=== PATIENT | male | born 1995 | race Caucasian/White ===

== ENCOUNTER 2022-10-14 23:19 | Emergency (ER) | payer OTHER, SELFPAY ==
--- NOTE | ~2022-10-14 | CT_ITS ---
EXAMINATION: CT HEAD WITHOUT CONTRAST CLINICAL INFORMATION: Altered mental status. COMPARISON: None available. TECHNIQUE: Contiguous axial imaging was performed from the skull base to vertex without intravenous administration of contrast. This CT examination was performed using dose optimization techniques as appropriate, variously including the following: *Automated exposure control. *Adjustment of mA and/or kV according to patient size (this includes techniques or standardized protocols for targeted exams where dose is matched to indication/reason for exam; i.e. extremities or head). *Use of iterative reconstruction technique. DLP: 672 mGy-cm FINDINGS: There is no evidence of acute intracranial hemorrhage or edematous territorial infarction. Davis-white matter differentiation is preserved. There is no abnormal attenuation within the brain parenchyma. The ventricles are normal in morphology and size. No evidence for obstructive hydrocephalus. No abnormal mass effect or midline shift. No extra-axial fluid collections. No acute soft tissue or osseous abnormalities. The mastoid air cells and visualized paranasal sinuses are clear. CT/CT head/brain wo IV con IMPRESSION: No evidence of acute intracranial hemorrhage or edematous territorial infarction.
--- NOTE | 2022-10-14 23:49 | ED.PSYCH ---
HPI - Psych General Stated Complaint: Crisis Time Seen by Provider: 10/14/22 23:47 Source: patient, family (Sister), EMS and police Mode of arrival: EMS Limitations: physical limitation (Acute psychosis) History of Present Illness HPI Narrative: 27 year male history of bipolar came in for evaluation of possible acute psychosis. Patient came in with the police not under Section 12, patient in the emergency department agitated, invective and abusive language to the staff patient stated that he has suicidal ideation but refused to mention any plan to it, patient also is refusing to answer if she used recreational drugs last night, history was mostly obtained from his sister who was called by the patient to come and pick him up from his house patient was acting psychotic and the sister drove him to the police station where they bring him to our hospital. Patient had prior mental hospitalization for suicidal ideation. Related Data Allergies Allergy/AdvReac Type Severity Reaction Status Date / Time No Known Allergies Allergy Unverified 02/04/20 16:34 Review of Systems Review of Systems: Yes Unobtainable due to mental condition (Acute psychosis.) Physical Exam Vital Signs: Vital Signs: Vital signs have been reviewed as appeared to be correct. Blood pressure normal. Heart rate normal. Respiration rate normal. Temperature normal. Oxygen saturation normal. Appearance: Alert. Oriented X3. No acute distress. Head: Normal external exam. Normocephalic. Atraumatic. No Mcdaniels signs noted. No raccoon eyes noted Eyes: PERRLA. EOMI. Conjunctiva and sclera normal. Eyelids normal. ENT: TM's Normal. Pharynx normal. Uvula midline. Moist mucous membranes. No trismus noted. No drooling noted. No muffled voice noted. Neck: Normal inspection. Neck supple. FROM. No adenopathy. Thyroid Normal. No meningeal signs. No neck mass noted. CVS: Normal heart rate and rhythm. Heart sound normal. No murmurs noted. Pulses normal throughout. Respiratory: No respiratory distress. Painless inspiration. Breath sounds normal. No wheezes/rales/rhonchi noted. Chest nontender. No accessory muscle usage noted or decreased air movement noted. Abdomen: Soft and nontender. Bowel sounds normal in all 4 quadrants. No distention noted. No organomegaly noted. No visible injury noted. Back: No CVA tenderness. Full range of motion noted. Skin: Skin warm and dry. Normal skin color. Normal skin turgor. No rashes/lesions/lacerations noted. Extremities: No lower extremity edema. Extremities exhibit normal range of motion. Extremities nontender. Neuro: Oriented X 3. Cranial nerve exam: II-XII are grossly intact No motor deficit. No sensory deficit. Reflexes normal. Patient Orientation: Person, Place, Time and Situation, okay hygiene and grooming. Fair eye contact, attentive, no tics or tremors. Level of Consciousness: Awake, Appropriate and Alert Patient Behavior: Appropriate, Guarded, Cooperative and Anxious Mood Description: Constricted, Blunted and Apprehensive Affect Description: Constricted, Blunted and Apprehensive Patient Cognition Impaired: No Ability to Follow Directions: Excellent Speech Pattern: Clear, Appropriate and Spontaneous Speech, nonpressured, spontaneous with regular rate and rhythm, normal volume and prosody. No dysarthria. Memory Description: Intact, Immediate Intact and Short Term Intact Hallucinations: None Delusions: Not Present Thought Process: Intact Thought Content: positive for Intact, positive for Logical, Suicidal Ideation, denies Homicidal Ideation. Depressive Symptoms: Not present. Judgement and Insight: Limited but adequate. Course Course Course Narrative: 27-year-old male came in accompanied by the police appear to be in acute psychosis, will check patient for urine drugs screening, check labs, care team for further evaluation. Medical Decision Making Differential Diagnosis Differential Diagnoses: The differential diagnosis associated with the presentation includes (Acute psychosis, substance abuse, alcohol abuse, electrolytes abnormalities, severe anemia.) Discharge Plan Discharge Clinical Impression: Acute psychosis, Suicidal ideation Patient Disposition: Still a Patient
[2022-10-14] MEDS: LORazepam 1 MG TABLET 2 MG PO (23:50)
[2022-10-14] MEDS: HaloperidoL 5 MG TABLET PO (23:50)
[2022-10-14] MEDS: diphenhydrAMINE HCL 25 MG CAPSULE PO (23:50)
[2022-10-15 01:01] VITALS: BP 172/95; PULSE 102; RESP 16; O2SAT 100; BMI 27.3
--- NOTE | 2022-10-15 01:04 | PC.NURSE ---
pt assessed, pt voluntary came in for +SI. Pt recently discharged from the . C/o of manic episodes x 1 week and unable to sleep. Pt uncooperative with staff . Family in talking with pt, pt willing to take po medications at 2350. Pt unwilling in go into a room or be touched by staff, lab work not done
--- NOTE | 2022-10-15 01:40 | PC.NURSE ---
blood work obtained
[2022-10-15 01:43] LABS: Hematocrit 38.1 % (42.0-52.0); Hemoglobin 13.3 g/dl (14.0-18.0); Imm Gran Abs Auto 0.02 X10*3/uL (0.00-0.03); Imm Gran Pct Auto 0.3 % (0.0-0.4); Lymphocytes Absolute Auto 0.9 X10*3/uL (1.2-4.9); Lymphocytes Percent Auto 11.7 % (20-40); MANUAL DIFF FLAG NO; Mean Corpuscular HGB Conc 34.9 g/dl (31.0-36.0); Mean Corpuscular Hemoglobin 30.2 pg (27.0-33.0); Mean Corpuscular Volume 86.6 fL (80.0-98.0); Mean Platelet Volume 9.2 fL (9.4-12.4); Monocytes Absolute Auto 0.5 X10*3/uL (0.1-1.2); Monocytes Percent Auto 6.4 % (2-11); Neutrophils Absolute Auto 6.1 x10*3/uL (2.0-8.3); Neutrophils Percent Auto 81.6 % (45-73); Platelet Count 201 X10*3/uL (160-400); Red Cell Distribution Width 11.9 % (11.0-16.0); White Blood Count 7.5 X10*3/uL (4.8-10.8)
[2022-10-15 02:00] LABS: Ethanol < 10 mg/dL
[2022-10-15 02:02] LABS: Alanine Aminotransferase 16 U/L (0-40); Albumin Level 4.8 g/dL (3.5-5.0); Alkaline Phosphatase 54 U/L (39-117); Anion Gap 15 (12-20); Aspartate Amino Transferase 19 U/L (5-37); Bilirubin Direct 0.2 mg/dL (0.0-0.5); Bilirubin Total 0.7 mg/dL (0.0-1.0); Blood Urea Nitrogen 9 mg/dL (9-16); Calcium 9.7 mg/dL (8.4-10.2); Carbon Dioxide 24 mmol/L (22-29); Chloride 103 mmol/L (96-108); Creatinine Clr Calc Pharmacy 127.2; Estimated Glomerular Filt Rate > 60; Glucose Random 134 mg/dL (60-115); Lipase 15 U/L (8-78); Potassium 3.8 mmol/L (3.3-5.1); Sodium 138 mmol/L (135-145); Total Protein 7.7 g/dL (6.5-8.0)
--- NOTE | 2022-10-15 06:16 | PC.NURSE ---
pt declined VS at this time
--- NOTE | 2022-10-15 09:32 | PC.NURSE ---
Pt refused vitals.
--- NOTE | 2022-10-15 09:43 | PC.NURSE ---
Pt is refusing vitals, refusing to register when approached, Pt is anxious. MD notified.
[2022-10-15] MEDS: LORazepam 1 MG TABLET PO (09:54)
[2022-10-15 09:55] LABS: Appearance Urine Clear; Color Urine Yellow; Glucose Urine UA Negative (Negative); Leukocyte Esterase Urine Negative (Negative); Nitrite Urine Negative (Negative); Urine Blood Negative (Negative); Urine Ketones Negative (Negative); Urine Protein Negative (Neg-Trace)
[2022-10-15 10:01] LABS: Bacteria Urine None Seen (None Seen); Hyaline Casts Urine 0-2 /LPF (0-2); RBC Urine 0-2 /HPF (0-2); Squamous Epithelial Cell Urine 0-2 /HPF (0-2); WBC Urine 0-5 /HPF (0-5)
[2022-10-15 10:06] LABS: Amphetamine Screen Urine POSITIVE (Not Detect); Barbiturates, Urine Not Detected (Not Detect); Benzodiazepines Screen Urine Not Detected (Not Detect); Cannabinoid Screen Urine POSITIVE (Not Detect); Cocaine Screen Urine Not Detected (Not Detect); Fentanyl, urine Not Detected (Not Detect); Opiate Screen Urine Not Detected (Not Detect); Phencyclidine Screen Urine Not Detected (Not Detect)
[2022-10-15 10:20] VITALS: BP 129/79; PULSE 96; RESP 18; TEMP 36.8; O2SAT 99
[2022-10-15] MEDS: HaloperidoL 5 MG TABLET PO (11:18)
[2022-10-15] MEDS: LORazepam 1 MG TABLET 2 MG PO (11:18)
--- NOTE | 2022-10-15 14:46 | PC.NURSE ---
has just left bedside after morning/afternoon, will return. Pt is currently sleeping.
--- NOTE | 2022-10-15 15:49 | PC.NURSE ---
Call to [facility] Med rec. faxed to Pod.
--- NOTE | 2022-10-15 17:37 | MHC.CARE ---
[facility] [place] [facility], RAD team waiting to hear back on if they can accommodate pt
[2022-10-15 18:27] LABS: COVID-19 Test Negative (Negative); IDNOW Serial# 55D5AD1C
[2022-10-15 19:55] LABS: Influenza A PCR NEGATIVE (Negative); Influenza B PCR NEGATIVE (Negative); Resp Syncy Virus RNA Qual PCR NEGATIVE (Negative); SARS COV2 PCR INHOUSE NEGATIVE (Negative)
[2022-10-15 21:53] VITALS: BP 127/60; PULSE 77; RESP 18; TEMP 36.6; O2SAT 100
--- NOTE | 2022-10-16 05:51 | PC.NURSE ---
Patient slept through the night, no distress observed/reported, behavior non concerning, disposition per care team is section 12 NE inpatient bed search, med rec was competed by day shift nurse, pending provider's approval, will continue to monitor.
[2022-10-16 06:29] VITALS: BP 122/72; PULSE 108; RESP 18; TEMP 35.8; O2SAT 98
--- NOTE | 2022-10-16 10:01 | MHC.CARE ---
T/w met with patient and his mother. Patient is alert, Ox3, bright affect, linear / logical. He is requesting d/c to return home to , desire to find outpatient treaters in the community, including individual and [facility]. He states that he will pay out of pocket. Reports that this is the first psychotic episode he had while sober. Alludes to having psychotic break while drinking, reporting a hx of etoh use since aged 16, but has been 9 months sober. Plan to have psychiatry weigh in on patient dispo.
--- NOTE | 2022-10-16 10:13 | MHC.CARE ---
10/16/22 Per Heidi at [facility] they are accepting Amilcar for today. ETA is 10:45am. Accepting is Dr. Palma. CARE team is completing sec 12 and [facility] set up transport. Address is [address] [place] [id number].
== END 2022-10-16 10:39 ==
PROVIDERS: Emergency Medicine; Emergency Provider Emergency Medicine
DX: F32.3 Major depressive disorder, single episode, severe with psychotic features (principal); R45.851 Suicidal ideations; R51.9 Headache, unspecified; Z20.822 Contact with and (suspected) exposure to COVID-19; Z20.828 Contact with and (suspected) exposure to other viral communicable diseases; Z79.899 Other long term (current) drug therapy
CPT/HCPCS: 0241U; 36415; 70450; 80048; 80076; 80307; 81001; 83690; 85025; 87635; 99285; S9485

== ENCOUNTER 2022-10-23 20:21 | Emergency (ER) | payer OTHER, SELFPAY ==
[2022-10-23 20:31] VITALS: BP 150/94; PULSE 107; RESP 16; O2SAT 98; BMI 33.9
--- NOTE | 2022-10-23 20:42 | ED_ITS ---
HPI - Psych General Chief Complaint: Psychiatric Symptoms Stated Complaint: Crisis Time Seen by Provider: 10/23/22 20:33 Source: patient and family Mode of arrival: ambulatory Limitations: other ( paranoid) History of Present Illness HPI Narrative: patient comes to the emergency room accompanied by his father. According to the patient's father, the patient had an appointment today with his therapist at the [facility]. according to the father the patient was then acting normal. But soon after, the father explains that the patient has had a roller coaster of emotions all day . patient reporting that he wants to harm himself and others. States he has not taken his Prescribed medications for her bipolar disorder. Patient has been using marijuana today according to the patient's father Related Data Home Medications Medication Instructions Recorded Confirmed No Known Home Meds 10/23/22 10/23/22 Allergies Allergy/AdvReac Type Severity Reaction Status Date / Time No Known Allergies Allergy Unverified 10/15/22 16:11 Review of Systems Review of Systems: Constitutional : No Weight loss, No Fever, No Chills, No Night Sweats, No Fatigue, No Malaise ENT/Mouth : No Hearing loss, No Ear Pain, No Nasal Congestion, No Sinus Pain, No Hoarseness, No sore throat, No Rhinorrhea, No Swallowing Difficulty Eyes: No Eye Pain, No Swelling, No Redness, No Foreign Body, No Discharge, No Vision Changes Cardiovascular : No Chest Pain, No SOB, No Dyspnea on Exertion, No Orthopnea, No Edema, No Palpitations Respiratory : No Cough, No Sputum, No Wheezing, No Smoke Exposure, No Dyspnea Gastrointestinal : No Nausea, No Vomiting, No Diarrhea, No Constipation, No abdominal Pain, No Hematochezia, No Melena Genitourinary : no irregular bleeding, No Dysuria, No Urinary Frequency, No Hematuria, No Urinary Incontinence, No Urgency, No Flank Pain, No Urinary Flow Changes, No Hesitancy Musculoskeletal : No joint pain, No Myalgias, No Joint Swelling Skin : No Skin Lesions, No rash Neuro : No Weakness, No Numbness, No Paresthesias, No Loss of Consciousness, No Dizziness, No Headache Psych : complaining of feeling that he wants to hurt self and others. Per patient's daughter, patient has been paranoid Heme/Lymph: No Bruising, No Bleeding,No Lymphadenopathy Endocrine : No Polyuria, No Polydipsia, No Temperature Intolerance [facility] Past Medical History Medical History Bipolar disorder Social History Social History Alcohol intake: current Alcohol type: hard liquor Advance Directives: No Advance Directives Information Provided: No Healthcare Proxy: No Guardian: No Physical Exam Vital Signs: Vital Signs: Last Vital Signs Temp 97.6 F 10/26/22 08:28 Pulse 91 10/26/22 08:28 Resp 16 10/26/22 08:28 BP 138/92 H 10/26/22 08:28 Pulse Ox 98 10/26/22 08:28 O2 Del Method Room Air 10/26/22 08:28 BMI result Body Mass Index 33.9 Const: Other: Appearance: Alert. Oriented X3. No acute distress. Eyes: Pupils equal, round and reactive to light. ENT: Pharynx normal. Neck: Normal inspection. Neck supple. No lymph nodes noted. No crepitus CVS: Normal heart rate and rhythm. Pulses normal. Normal S1 and S2 Respiratory: No respiratory distress. Breath sounds normal. No Wheezing. No rales Abdomen: Soft and nontender. No rigidity. No distention. Skin: Skin warm and dry. Normal skin color. Normal skin turgor. Extremities: No lower extremity edema. No Lacerations. No Rash Neuro: Oriented X 3. No motor deficit. No sensory deficit. Moving all extremities. No slurred speech. CN 2 through 12 grossly intact Psych: agitated, following directions but a bit reluctant Course Course Course Narrative: - patient's labs are pending - will attempt to medicate now the patient p.o., slowly escalating - care team consult pending - section [address] - physician observe patient started at 20:45 Reevaluation(s) Reevaluation #1: Stable vitals and labs pending care team evaluation for SI Time: 07:32 Reevaluation #2: Patient is feeling quite anxious at this time. He has had Zyprexa recently 5 mg with good effect. Will repeat the dose at this time. Time: 09:08 Reevaluation #3: Patient has stable vitals awaiting for placement Time: 08:37 Medications Administered Generic Name Dose Route Start Last Admin Trade Name Freq PRN Reason Stop Dose Admin Olanzapine 10 mg 10/25/22 21:00 10/26/22 07:20 Olanzapine Odt 10 Mg Tab.Rapdis TRANSLINGU 10 mg BID RICHARD Administration Olanzapine 10 mg 10/25/22 11:57 10/25/22 18:22 Olanzapine Odt 10 Mg Tab.Rapdis TRANSLINGU 10 mg Q6H PRN Administration agitation Discontinued Medications Generic Name Dose Route Start Last Admin Trade Name Cheryl PRN Reason Stop Dose Admin Diphenhydramine HCl 50 mg 10/23/22 20:42 10/23/22 20:46 Diphenhydramine Hcl 25 Mg Capsule PO 10/23/22 20:43 50 mg ONCE ONE Administration Haloperidol 5 mg 10/23/22 20:42 10/23/22 20:46 Haloperidol 5 Mg Tablet PO 10/23/22 20:43 5 mg ONCE ONE Administration Hydroxyzine HCl 25 mg 10/25/22 10:09 10/25/22 10:12 Hydroxyzine Hcl 25 Mg Tablet PO 10/25/22 10:10 25 mg ONCE ONE Administration Lorazepam 2 mg 10/23/22 20:42 10/23/22 20:46 Lorazepam 1 Mg Tablet PO 10/23/22 20:43 2 mg ONCE ONE Administration Lorazepam 2 mg 10/25/22 11:56 10/25/22 12:02 Lorazepam 1 Mg Tablet PO 10/25/22 11:57 2 mg ONCE ONE Administration Lorazepam 2 mg 10/25/22 19:09 10/25/22 19:12 Lorazepam 1 Mg Tablet PO 10/25/22 19:10 2 mg ONCE ONE Administration Olanzapine 5 mg 10/24/22 14:49 10/24/22 14:56 Olanzapine 5 Mg Tablet PO 10/24/22 14:50 5 mg ONCE ONE Administration Olanzapine 5 mg 10/25/22 09:08 10/25/22 09:31 Olanzapine 5 Mg Tablet PO 10/25/22 09:09 5 mg ONCE ONE Administration Olanzapine 20 mg 10/25/22 11:56 10/25/22 12:02 Olanzapine Odt 10 Mg Tab.Rapdis TRANSLINGU 10/25/22 11:57 20 mg ONCE ONE Administration Medical Decision Making Lab Data 10/24/22 12:48 10/24/22 12:48 Labs: Lab Results 10/23/22 10/23/22 10/24/22 Range/Units 20:55 20:55 12:48 WBC 6.2 (4.8-10.8) X10*3/uL RBC 4.71 (4.60-5.80) X10*6/uL Hgb 14.2 (14.0-18.0) g/dl Hct 42.6 (42.0-52.0) % MCV 90.4 (80.0-98.0) fL MCH 30.1 (27.0-33.0) pg MCHC 33.3 (31.0-36.0) g/dl RDW 12.5 (11.0-16.0) % Plt Count 199 (160-400) X10*3/uL MPV 9.7 (9.4-12.4) fL Immature Gran % (Auto) 0.5 H (0.0-0.4) % Neut % (Auto) 67.0 (45-73) % Lymph % (Auto) 24.1 (20-40) % Wilkinson % (Auto) 7.6 (2-11) % Eos % (Auto) 0.6 (0-4) % Baso % (Auto) 0.2 (0-2) % Lymph # (Auto) 1.5 (1.2-4.9) X10*3/uL Wilkinson # (Auto) 0.5 (0.1-1.2) X10*3/uL Eos # (Auto) 0.0 (0.0-0.4) X10*3/uL Baso # (Auto) 0.0 (0.0-0.2) X10*3/uL Abs Immat Gran (auto) 0.03 (0.00-0.03) X10*3/uL Absolute Neuts (auto) 4.1 (2.0-8.3) x10*3/uL Absolute Nucleated RBC 0.000 (0.0-0.012) X10*3/uL Nucleated RBC % (auto) 0.0 (0.0-0.2) /100WBC Sodium (135-145) mmol/L Potassium (3.3-5.1) mmol/L Chloride (96-108) mmol/L Carbon Dioxide (22-29) mmol/L Anion Gap (12-20) BUN (9-16) mg/dL Creatinine (0.5-1.4) mg/dL Estim Creat Clear Calc Estimated GFR Random Glucose (60-115) mg/dL Calcium (8.4-10.2) mg/dL Total Bilirubin (0.0-1.0) mg/dL Direct Bilirubin (0.0-0.5) mg/dL AST (5-37) U/L ALT (0-40) U/L Alkaline Phosphatase (39-117) U/L Total Protein (6.5-8.0) g/dL Albumin (3.5-5.0) g/dL TSH (0.32-4.0) uIU/mL Urine Color Yellow Urine Appearance Clear Urine pH 8.5 (5.0-9.0) Ur Specific [place] 1.010 (1.005-1.025) Urine Protein Negative (Neg-Trace) mg/dL Urine Glucose (UA) Negative (Negative) mg/dL Urine Ketones Negative (Negative) mg/dL Urine Blood Negative (Negative) Urine Nitrite Negative (Negative) Ur Leukocyte Esterase Negative (Negative) Urine RBC (0-2) /HPF Urine WBC (0-5) /HPF Ur Squamous Epith Cells (0-2) /HPF Urine Bacteria (None Seen) Hyaline Casts (0-2) /LPF Urine Opiates Screen Not Detected (Not Detect) Urine Fentanyl Screen Not Detected (Not Detect) Ur Barbiturates Screen Not Detected (Not Detect) Ur Phencyclidine Scrn Not Detected (Not Detect) Ur Amphetamines Screen Not Detected (Not Detect) U Benzodiazepines Scrn Not Detected (Not Detect) Urine Cocaine Screen Not Detected (Not Detect) U Marijuana (THC) Screen POSITIVE H (Not Detect) Ethyl Alcohol mg/dL COVID-19 ([facility]) (Negative) COVID-19 Clin Com 10/24/22 10/24/22 10/24/22 Range/Units 12:48 12:48 13:42 WBC (4.8-10.8) X10*3/uL RBC (4.60-5.80) X10*6/uL Hgb (14.0-18.0) g/dl Hct (42.0-52.0) % MCV (80.0-98.0) fL MCH (27.0-33.0) pg MCHC (31.0-36.0) g/dl RDW (11.0-16.0) % Plt Count (160-400) X10*3/uL MPV (9.4-12.4) fL Immature Gran % (Auto) (0.0-0.4) % Neut % (Auto) (45-73) % Lymph % (Auto) (20-40) % Wilkinson % (Auto) (2-11) % Eos % (Auto) (0-4) % Baso % (Auto) (0-2) % Lymph # (Auto) (1.2-4.9) X10*3/uL Wilkinson # (Auto) (0.1-1.2) X10*3/uL Eos # (Auto) (0.0-0.4) X10*3/uL Baso # (Auto) (0.0-0.2) X10*3/uL Abs Immat Gran (auto) (0.00-0.03) X10*3/uL Absolute Neuts (auto) (2.0-8.3) x10*3/uL Absolute Nucleated RBC (0.0-0.012) X10*3/uL Nucleated RBC % (auto) (0.0-0.2) /100WBC Sodium 140 (135-145) mmol/L Potassium 4.1 (3.3-5.1) mmol/L Chloride 104 (96-108) mmol/L Carbon Dioxide 29 (22-29) mmol/L Anion Gap 11 L (12-20) BUN 12 (9-16) mg/dL Creatinine 0.83 (0.5-1.4) mg/dL Estim Creat Clear Calc 173.8 Estimated GFR > 60 Random Glucose 90 (60-115) mg/dL Calcium 9.6 (8.4-10.2) mg/dL Total Bilirubin 0.7 (0.0-1.0) mg/dL Direct Bilirubin 0.2 (0.0-0.5) mg/dL AST 19 (5-37) U/L ALT 14 (0-40) U/L Alkaline Phosphatase 55 (39-117) U/L Total Protein 7.1 (6.5-8.0) g/dL Albumin 4.5 (3.5-5.0) g/dL TSH 1.39 (0.32-4.0) uIU/mL Urine Color Yellow Urine Appearance Clear Urine pH 8.5 (5.0-9.0) Ur Specific [place] 1.010 (1.005-1.025) Urine Protein Negative (Neg-Trace) mg/dL Urine Glucose (UA) Negative (Negative) mg/dL Urine Ketones Negative (Negative) mg/dL Urine Blood Negative (Negative) Urine Nitrite Negative (Negative) Ur Leukocyte Esterase Negative (Negative) Urine RBC 0-2 (0-2) /HPF Urine WBC 0-5 (0-5) /HPF Ur Squamous Epith Cells 0-2 (0-2) /HPF Urine Bacteria None Seen (None Seen) Hyaline Casts 0-2 (0-2) /LPF Urine Opiates Screen (Not Detect) Urine Fentanyl Screen (Not Detect) Ur Barbiturates Screen (Not Detect) Ur Phencyclidine Scrn (Not Detect) Ur Amphetamines Screen (Not Detect) U Benzodiazepines Scrn (Not Detect) Urine Cocaine Screen (Not Detect) U Marijuana (THC) Screen (Not Detect) Ethyl Alcohol < 10 mg/dL COVID-19 ([facility]) Negative (Negative) COVID-19 Clin Com See Note Discharge Plan Discharge Clinical Impression: Paranoid, Suicidal ideation Patient Disposition: Home, Self-Care Prescriptions: No Action No Known Home Meds Interventions: [place]-Suicide Risk Severity Scale Last Done: 10/26/22 05:00 ED Observation ED Observation Admit Comment: 1455 I was called to evaluate the patient. He is no on any medications and they were concerned he was escalating. I will give the patient some zyprexa at this time.
[2022-10-23] MEDS: diphenhydrAMINE HCL 25 MG CAPSULE 50 MG PO (20:46)
[2022-10-23] MEDS: LORazepam 1 MG TABLET 2 MG PO (20:46)
[2022-10-23] MEDS: HaloperidoL 5 MG TABLET PO (20:46)
[2022-10-23 21:04] LABS: Appearance Urine Clear; Color Urine Yellow; Glucose Urine UA Negative (Negative); Nitrite Urine Negative (Negative); PH 8.5 (5.0-9.0); Urine Blood Negative (Negative); Urine Ketones Negative (Negative); Urine Protein Negative (Neg-Trace)
[2022-10-23 21:05] LABS: Leukocyte Esterase Urine Negative (Negative)
--- NOTE | 2022-10-23 21:14 | MHC.EDTECH ---
SIRENA Flores spoke with provider regarding patients blood draw. Provider stated labs can wait until morning 10-24-2022, as patient is calm and resting in his room at this time.
[2022-10-23 21:21] LABS: Amphetamine Screen Urine Not Detected (Not Detect); Barbiturates, Urine Not Detected (Not Detect); Benzodiazepines Screen Urine Not Detected (Not Detect); Cannabinoid Screen Urine POSITIVE (Not Detect); Cocaine Screen Urine Not Detected (Not Detect); Fentanyl, urine Not Detected (Not Detect); Opiate Screen Urine Not Detected (Not Detect); Phencyclidine Screen Urine Not Detected (Not Detect)
--- NOTE | 2022-10-24 05:03 | PC.NURSE ---
Patient slept through the night, no distress observed/reported, per father patient exhibiting manic behavior at home, patient reported he hadn't slept for few day, Ativan 2 mg PO, Benadryl 50 mg Po, and Haldol 5 mg PO administered @ 2045, patient compliant with + effect, med rec completed/currently not on any home medication, patient repeatedly [facility] but patient was told front of his father, he needs to assessed by care team first, patient was provide urine sample but was not ready for blood drawn at this time, provider made aware and not concerns about lab draw because patient's was drawn a week ago, care consult ordered/pending evaluation, patient is and is suffering from PTSD, will continue to monitor.
[2022-10-24 07:30] VITALS: RESP 14
--- NOTE | 2022-10-24 09:00 | PC.NURSE ---
PT'S FATHER (MARS) IS AT BEDSIDE, PT IS SLEEPING RESP EVEN AND UNLABORED. PT'S FATHER STATED THAT YESTERDAY PRIOR TO COMING IN TO HOSP, PT STATED THAT HE IS SUICIDAL. CARE TEAM MADE AWARE.
--- NOTE | 2022-10-24 11:58 | PC.NURSE ---
PATIENTS FATHER RETURN FROM [facility] WAITING ROOM WHERE IS WAS WAITING UNTIL PATIENT IS AWAKE AND IS AT PT BEDSIDE. PT IS NOW AWARE AND IS DRINKING OJ AND COFFEE.
--- NOTE | 2022-10-24 12:46 | ECG_ITS ---
Test Reason : Psych Evaluation Blood Pressure : / mmHG Vent. Rate : 064 BPM Atrial Rate : 064 BPM P-R Int : 150 ms QRS Dur : 114 ms QT Int : 424 ms P-R-T Axes : 025 068 059 degrees QTc Int : 437 ms Normal sinus rhythm with sinus arrhythmia Normal ECG No previous ECGs available Referred By: Sheri Read Electronically Signed By:Arnaldo Matson
[2022-10-24 12:50] VITALS: BP 125/83; PULSE 70; RESP 14; TEMP 36.3; O2SAT 100
[2022-10-24 13:05] LABS: MANUAL DIFF FLAG NO
[2022-10-24 13:07] LABS: Basophils Percent Auto 0.2 % (0-2); Eosinophils Percent Auto 0.6 % (0-4); Hematocrit 42.6 % (42.0-52.0); Hemoglobin 14.2 g/dl (14.0-18.0); Imm Gran Abs Auto 0.03 X10*3/uL (0.00-0.03); Imm Gran Pct Auto 0.5 % (0.0-0.4); Lymphocytes Absolute Auto 1.5 X10*3/uL (1.2-4.9); Lymphocytes Percent Auto 24.1 % (20-40); Mean Corpuscular HGB Conc 33.3 g/dl (31.0-36.0); Mean Corpuscular Hemoglobin 30.1 pg (27.0-33.0); Mean Corpuscular Volume 90.4 fL (80.0-98.0); Mean Platelet Volume 9.7 fL (9.4-12.4); Monocytes Absolute Auto 0.5 X10*3/uL (0.1-1.2); Monocytes Percent Auto 7.6 % (2-11); Neutrophils Absolute Auto 4.1 x10*3/uL (2.0-8.3); Platelet Count 199 X10*3/uL (160-400); Red Blood Count 4.71 X10*6/uL (4.60-5.80); Red Cell Distribution Width 12.5 % (11.0-16.0); White Blood Count 6.2 X10*3/uL (4.8-10.8)
[2022-10-24 13:29] LABS: Alanine Aminotransferase 14 U/L (0-40); Albumin Level 4.5 g/dL (3.5-5.0); Alkaline Phosphatase 55 U/L (39-117); Anion Gap 11 (12-20); Aspartate Amino Transferase 19 U/L (5-37); Bilirubin Direct 0.2 mg/dL (0.0-0.5); Bilirubin Total 0.7 mg/dL (0.0-1.0); Blood Urea Nitrogen 12 mg/dL (9-16); Calcium 9.6 mg/dL (8.4-10.2); Carbon Dioxide 29 mmol/L (22-29); Chloride 104 mmol/L (96-108); Creatinine Clr Calc Pharmacy 173.8; Estimated Glomerular Filt Rate > 60; Ethanol < 10 mg/dL; Glucose Random 90 mg/dL (60-115); Potassium 4.1 mmol/L (3.3-5.1); Sodium 140 mmol/L (135-145); Total Protein 7.1 g/dL (6.5-8.0)
[2022-10-24 13:32] LABS: COVID-19 Test Negative (Negative); IDNOW Serial# 9DB6401D
[2022-10-24 13:57] LABS: Appearance Urine Clear; Color Urine Yellow; Glucose Urine UA Negative (Negative); Leukocyte Esterase Urine Negative (Negative); Nitrite Urine Negative (Negative); PH 8.5 (5.0-9.0); Urine Blood Negative (Negative); Urine Ketones Negative (Negative); Urine Protein Negative (Neg-Trace)
--- NOTE | 2022-10-24 13:57 | MHC.CARE ---
patient is voluntary to go inpatient at the [facility]. Pending acceptance.
[2022-10-24 14:02] LABS: Bacteria Urine None Seen (None Seen); Hyaline Casts Urine 0-2 /LPF (0-2); RBC Urine 0-2 /HPF (0-2); Squamous Epithelial Cell Urine 0-2 /HPF (0-2); WBC Urine 0-5 /HPF (0-5)
[2022-10-24 14:21] VITALS: BP 143/75; PULSE 69; RESP 14; TEMP 36.5; O2SAT 99
--- NOTE | 2022-10-24 14:29 | PC.NURSE ---
PT'S MOTHER IS AT BEDSIDE. MOTHER CAME UP TO NURSING STATION INQUIRING ABOUT THE STATUS OF PT [facility] THE [facility].
--- NOTE | 2022-10-24 14:46 | PC.NURSE ---
PT IS GETTING ANXIOUS, PACING IN HALLWAY AND ROOM. PRN. MOTHER IS STILL ON THE UNIT.
[2022-10-24] MEDS: OLANZapine 5 MG TABLET PO (14:56)
--- NOTE | 2022-10-24 15:04 | MHC.EDTECH ---
this patient took a shower and bed linen was changed RN AWARE
--- NOTE | 2022-10-24 15:46 | PC.NURSE ---
PT IS GETTING PARANOID STATES THAT THEY HAVE TRACKING DEVICES IN THE [facility] . AWARE. PT IS PACING AND STATES THAT HE IS NOT SLEEPING HERE TONIGHT, HE NEED[facility] TO THE [facility].
--- NOTE | 2022-10-24 15:48 | PC.NURSE ---
SECURITY(LAM) NOTIFIED OF POSSIBLE FLIGHT RISK
--- NOTE | 2022-10-24 15:50 | MHC.EDTECH ---
Patient seems to have an increased level of agitation and aggressiveness stating to staff members that he refuses to sleep here tonight and if has to he going to find away out of this place, stated he believes someone put a tracking devise on his zari which turned out to be just an old sticker that was washed in the zari.Also patient folded all his bed linen and is pacing back and forth and being very observant of the entrance to the pod
--- NOTE | 2022-10-24 16:17 | PC.NURSE ---
FLIGHT RISK SIGN IS PLACED ON THE OUTER OF THE POD.
--- NOTE | 2022-10-24 16:48 | MHC.EDTECH ---
patient took a shower and this pct changed the bed linen and was given a new zari shirt and pants. RN AWARE
--- NOTE | 2022-10-24 16:48 | PC.NURSE ---
PATIENT'S FATHER IS IN THE COMMON AREA WITH HIM. PT IS DRINKING A PITCHER OF JOSHUA CARMELITA.
--- NOTE | 2022-10-24 17:05 | PC.NURSE ---
DR. PROCTOR FROM THE DC IN [place] ([phone]) CALLED [facility] AND SPOKE WITH THIS RN BRIEFLY THEN ASKED TO SPEAK WITH THE PATIENT. THIS RN THEN SPOKE WITH DR. PROCTOR WHO SAID THAT HE TOLD THE PT THAT THE [facility] IS A LOCKED FACILITY AND HE WOULD HAVE TO STAY THERE FOR [address]. [address] PROCTOR THAT HE NEED TO GO HOME AND LET MY DOG OUT AND I WANT TO BE MY HIS DOG AND I HAVE NO INTEREST STAY IN A LOCKED FACILITY . THIS RN THEN VERIFIED WITH THE PATIENT AND PT STATED THE CONVERSATION QUESTIONS/ANSWERS WERE CORRECT BETWEEN HIM AND THE ABOVE MD OF [facility] ([phone]). THIS RN RELAYED THE MESSAGE TO CARE TEAM (RADHA).
--- NOTE | 2022-10-24 17:34 | MHC.EDTECH ---
patient seemed to be even more agitated after receiving information about his plan and the type of facility he would be placed at. Patient asked if he could switch rooms to a room with a tv,after consulting the nurse the move was ok by her and patient seems to be relaxed now and is calm.
--- NOTE | 2022-10-24 17:43 | PC.NURSE ---
PT IS SECTION 12
--- NOTE | 2022-10-24 18:48 | MHC.CARE ---
[facility] are not seeing patient as committable via section 12 at this time and also express concerns about his behavioral regulation abilities. His parents express acute concern about his emotional lability, struggle to self care with sleep/ eating and the degree to which he makes suicidal hopeless statements and his expressed experience of hallucinations while driving with father. Patient's is afraid to be around him due to his lability. Section 12 in patients chart.
[2022-10-24 21:30] VITALS: BP 111/65; PULSE 67; RESP 18; TEMP 36.4; O2SAT 98
[2022-10-24 23:43] LABS: Thyroid Stimulating Hormone 1.39 uIU/mL (0.32-4.0)
--- NOTE | 2022-10-25 05:08 | PC.NURSE ---
Patient slept through evening and night, no distress observed/reported, disposition per care team is section 12 [place] inpatient bed search, behavior non concerning, patient is currently not on any scheduled medication, no medication during 7p to 7a shift, behavior non concerning at this time, thought content paranoid, VSS, will continue to monitor.
[2022-10-25 06:25] VITALS: RESP 14
--- NOTE | 2022-10-25 08:45 | PC.NURSE ---
Faxed request for Med List to [facility]
--- NOTE | 2022-10-25 08:48 | MHC.CARE ---
CARE Team spoke with Carlee at the [place] [phone] 24/4hr notification was completed by ED and CARE Team updated with psychiatric admission information. Notification #[id number]
[2022-10-25 08:53] VITALS: BP 111/74; PULSE 70; RESP 17; TEMP 37.1; O2SAT 98
--- NOTE | 2022-10-25 08:56 | PC.NURSE ---
Mother at Bedside. Reports Pt was taking off Adderall and put on a mood stabilizer.
--- NOTE | 2022-10-25 09:05 | PC.NURSE ---
Pt is anxious, Mother requesting to speak with MD or Care Team. MD and Care Team notified.
--- NOTE | 2022-10-25 09:08 | PC.NURSE ---
Mother left. Speaking with Care Team.
[2022-10-25 09:15] VITALS: BP 149/81
[2022-10-25] MEDS: OLANZapine 5 MG TABLET PO (09:31)
--- NOTE | 2022-10-25 09:56 | PC.NURSE ---
Pt is agitated with Family and Staff. Feels he is being held against his will. Repeatability speaking desire to go home, set up his Fish Tank, and see his Dog. Pt denies SI at this time. However, he does admit to making SI statements to Family , and a prior attempt about 1 yr. ago. Pt is pacing. PRN medication seems to have had little effect. He does feel that the Zyprexa did calm the chaos in his head . notified.
[2022-10-25] MEDS: hydrOXYzine HCL 25 MG TABLET PO (10:12)
--- NOTE | 2022-10-25 10:13 | PC.NURSE ---
New order obtained. Medicated as ordered. Pt continues with repetitive statements and pacing.
[2022-10-25 10:30] VITALS: BP 149/94; PULSE 77
--- NOTE | 2022-10-25 10:50 | MHC.CARE ---
CARE Team spoke with Carlee at the [place] [phone] 24/4hr notification was completed by ED and CARE Team updated with psychiatric information. Notification #[id number].
--- NOTE | 2022-10-25 10:55 | MHC.CARE ---
CARE Team spoke with Heidi at the [facility] reporting that Pt was declined last evening though she is going to review with the psychiatrist today regarding signing in Pt involuntarily to the hospital. She requested we represent Pt with updated clinical information.
[2022-10-25 11:12] VITALS: BP 131/72; PULSE 68
--- NOTE | 2022-10-25 11:22 | PC.NURSE ---
Pt continue to pace and make repetitive statements. He mentions the PRN medication did help, but made him feel tierd..
--- NOTE | 2022-10-25 12:00 | P.CNPS_ITS ---
History of Present Illness Date of Service: 10/26/2022 Chief Complaint: Crisis Reason for Consult: agitation/labile Discussed with referring provider: Yes Sources of Information: patient interviewed, chart reviewed and crisis/core team assessment reviewed HPI Narrative: Mr. Ledezma is a 27 year-old male brought in by due to patient presenting as labile, persecutory delusions. Utox positive for cannabinnoids. Pt with recent hx of psychosis and labile mood. He was discharged from [facility] about one week ago after tx with similar presentation. Pt seen today. Pt presents as labile, asking to be discharged. Pt presents as paranoid towards his stating recently he realized he can't trust her and he has moved to the [facility]. When asked to elaborate, pt states his mind has been racing, he has not been sleeping. Pt initially increasingly more agitated, declining to speak with this curriculum writer and asking to be discharged as he states I'm not crazy, I a [place]. Pt ultimately agree to speak with this curriculum writer as this curriculum writer explained that I can help adjust his medications. He reports medica tion have been helpful for agitation- he was given olanzapine and ativan one time doses. He denies SI/HI. He reports it's been about 2 weeks since he feels he is not right. He reports he does not know who he can trust and has not been sleeping. Past Psychiatric History: Inpt: recent admission to [facility] OP: none currently Medical Evaluation Reviewed: Yes [facility] Medical History Bipolar disorder Diagnostics Vital Signs (24Hr): Vital Signs - 24 hr 10/24/22 12:50 10/24/22 14:21 10/24/22 21:30 Temperature 97.3 F 97.7 F 97.5 F Pulse Rate 70 69 67 Respiratory Rate 14 14 18 Blood Pressure 125/83 143/75 H 111/65 Pulse Oximetry 100 99 98 Oxygen Delivery Method Room Air Room Air Room Air 10/25/22 06:25 10/25/22 08:53 10/25/22 09:15 Temperature 98.8 F Pulse Rate 70 Respiratory Rate 14 17 Blood Pressure 111/74 149/81 H Pulse Oximetry 98 Oxygen Delivery Method Room Air Room Air 10/25/22 10:30 10/25/22 11:12 Temperature Pulse Rate 77 68 Respiratory Rate Blood Pressure 149/94 H 131/72 Pulse Oximetry Oxygen Delivery Method BMI result Body Mass Index 33.9 Labs 10/24/22 12:48 10/24/22 12:48 Labs: Laboratory Results - last 48 hr 10/23/22 10/23/22 10/24/22 20:55 20:55 12:48 WBC 6.2 RBC 4.71 Hgb 14.2 Hct 42.6 MCV 90.4 MCH 30.1 MCHC 33.3 RDW 12.5 Plt Count 199 MPV 9.7 Immature Gran % (Auto) 0.5 H Neut % (Auto) 67.0 Lymph % (Auto) 24.1 [place] % (Auto) 7.6 Eos % (Auto) 0.6 Baso % (Auto) 0.2 Lymph # (Auto) 1.5 [place] # (Auto) 0.5 Eos # (Auto) 0.0 Baso # (Auto) 0.0 Abs Immat Gran (auto) 0.03 Absolute Neuts (auto) 4.1 Absolute Nucleated RBC 0.000 Nucleated RBC % (auto) 0.0 Sodium Potassium Chloride Carbon Dioxide Anion Gap BUN Creatinine Estim Creat Clear Calc Estimated GFR Random Glucose Calcium Total Bilirubin Direct Bilirubin AST ALT Alkaline Phosphatase Total Protein Albumin TSH Urine Color Yellow Urine Appearance Clear Urine pH 8.5 Ur Specific Roby 1.010 Urine Protein Negative Urine Glucose (UA) Negative Urine Ketones Negative Urine Blood Negative Urine Nitrite Negative Ur Leukocyte Esterase Negative Urine RBC Urine WBC Ur Squamous Epith Cells Urine Bacteria Hyaline Casts Urine Opiates Screen Not Detected Urine Fentanyl Screen Not Detected Ur Barbiturates Screen Not Detected Ur Phencyclidine Scrn Not Detected Ur Amphetamines Screen Not Detected U Benzodiazepines Scrn Not Detected Urine Cocaine Screen Not Detected U Marijuana (THC) Screen POSITIVE H Ethyl Alcohol COVID-19 ([facility]) COVID-19 Clin Com 10/24/22 10/24/22 10/24/22 12:48 12:48 13:42 WBC RBC Hgb Hct MCV MCH MCHC RDW Plt Count MPV Immature Gran % (Auto) Neut % (Auto) Lymph % (Auto) [place] % (Auto) Eos % (Auto) Baso % (Auto) Lymph # (Auto) [place] # (Auto) Eos # (Auto) Baso # (Auto) Abs Immat Gran (auto) Absolute Neuts (auto) Absolute Nucleated RBC Nucleated RBC % (auto) Sodium 140 Potassium 4.1 Chloride 104 Carbon Dioxide 29 Anion Gap 11 L BUN 12 Creatinine 0.83 Estim Creat Clear Calc 173.8 Estimated GFR > 60 Random Glucose 90 Calcium 9.6 Total Bilirubin 0.7 Direct Bilirubin 0.2 AST 19 ALT 14 Alkaline Phosphatase 55 Total Protein 7.1 Albumin 4.5 TSH 1.39 Urine Color Yellow Urine Appearance Clear Urine pH 8.5 Ur Specific Roby 1.010 Urine Protein Negative Urine Glucose (UA) Negative Urine Ketones Negative Urine Blood Negative Urine Nitrite Negative Ur Leukocyte Esterase Negative Urine RBC 0-2 Urine WBC 0-5 Ur Squamous Epith Cells 0-2 Urine Bacteria None Seen Hyaline Casts 0-2 Urine Opiates Screen Urine Fentanyl Screen Ur Barbiturates Screen Ur Phencyclidine Scrn Ur Amphetamines Screen U Benzodiazepines Scrn Urine Cocaine Screen U Marijuana (THC) Screen Ethyl Alcohol < 10 COVID-19 ([facility]) Negative COVID-19 Clin Com See Note Mental Status Exam Mental Status Exam Narrative: Appearance: wearing hospital gown, pacing, irritable and labile, restless. Behavior:initially very irritable, later calmer but still labile. Psychomotor: pacing, escalating level of agitation. Speech: clear, somewhat pressured, spontaneous TP: goal oriented- wanted to leave TC: paranoid ideas towards , not knowing who he can trust, feeling restless, Mood: fine Affect: labile, periods of irritability, crying SI: denies HI: denies AH/VH: appears internally preoccupied, denies when asked Delusions: paranoid ideas Insight/judgment: fair x 2 Memory/cog: alert oriented x3. Medications Medications Current Medications Olanzapine (Olanzapine Odt 10 Mg Tab.Rapdis) 10 mg TRANSLINGU BID RICHARD Olanzapine (Olanzapine Odt 10 Mg Tab.Rapdis) 10 mg TRANSLINGU Q6H PRN PRN Reason: agitation Allergies Allergies Allergy/AdvReac Type Severity Reaction Status Date / Time No Known Allergies Allergy Unverified 10/15/22 16:11 Assessment & Plan Assessment & Plan (1) Bipolar 1 disorder, manic, moderate: Status: Acute Code(s): F31.12 - Bipolar disorder, current episode manic without psychotic features, moderate Plan Mr. Ledezma is a 27 year-old male self presented with labile mood, increased energy, some paranoia towards , appears internally preoccupied although he is very guarded about content of delusions. He denies SI/HI. but given mood lability concern of pt losing control over reaction and quickly becoming aggressive. We discussed risks, benefits and alternative treatment options, pt agrees to start olanzapine 5mg po BID. Prn ativan PLAN 1. [facility] 2. Start olanzapine 5mg po BID. Total time managing care of this patient today ____ minutes.
[2022-10-25] MEDS: LORazepam 1 MG TABLET 2 MG PO ×2 (12:02→19:12)
[2022-10-25] MEDS: OLANZapine ODT 10 MG TAB.RAPDIS 20 MG TRANSLINGU (12:02)
--- NOTE | 2022-10-25 12:05 | PC.NURSE ---
Pt medicated as ordered without incidence.
--- NOTE | 2022-10-25 12:59 | PC.NURSE ---
Pt mood has improved after PRN. Pt is relaxing in back TV Room. Able to watch TV and read [place].
--- NOTE | 2022-10-25 15:47 | MHC.CARE ---
CARE Team left VM for Pts father to provide update regarding plan of care.
[2022-10-25] MEDS: OLANZapine ODT 10 MG TAB.RAPDIS TRANSLINGU (18:22)
[2022-10-25 22:07] VITALS: RESP 18
--- NOTE | 2022-10-26 05:52 | PC.NURSE ---
Patient slept through the night, no distress observed/reported, medication compliant, triggered by father's presence, Ativan 2 mg PO administered at 1912 with + effect, behavior non concerning but unpredictable due to labile affect,, labs completed/reported, no safety concerns at this time, disposition per care team is section 12 [place] inpatient bed search, will continue to monitor.
[2022-10-26] MEDS: OLANZapine ODT 10 MG TAB.RAPDIS TRANSLINGU ×2 (07:20→10:34)
[2022-10-26 08:28] VITALS: BP 138/92; PULSE 91; RESP 16; TEMP 36.4; O2SAT 98
[2022-10-26] MEDS: Nicotine Polacrilex 2 MG GUM 4 MG BUCCAL (08:50)
[2022-10-26 09:33] LABS: Influenza A PCR NEGATIVE (Negative); Influenza B PCR NEGATIVE (Negative); Resp Syncy Virus RNA Qual PCR NEGATIVE (Negative); SARS COV2 PCR INHOUSE NEGATIVE (Negative)
--- NOTE | 2022-10-26 10:40 | MHC.CARE ---
[facility] Shah accepting provider. [facility] will set up transportation and call back with hannah QUINTANILLA
== END 2022-10-26 12:48 ==
PROVIDERS: Internal Medicine; Physician Assistant Medical; Emergency Provider Emergency Medicine
DX: F60.0 Paranoid personality disorder (principal); R45.851 Suicidal ideations; F41.9 Anxiety disorder, unspecified; F31.9 Bipolar disorder, unspecified; Z20.822 Contact with and (suspected) exposure to COVID-19; Z20.828 Contact with and (suspected) exposure to other viral communicable diseases; F12.90 Cannabis use, unspecified, uncomplicated; Z91.148 Patient's other noncompliance with medication regimen for other reason
CPT/HCPCS: 0241U; 36415; 80053; 80307; 81001; 81003; 82248; 84443; 85025; 87635; 93005; 99285; S9485